=== PATIENT | male | born 1995 | race Caucasian/White ===

== ENCOUNTER 2022-08-14 18:22 | Emergency (ER) | payer BC, SELFPAY ==
[2022-08-14 18:29] VITALS: BP 135/88; PULSE 89; RESP 16; TEMP 36.6; O2SAT 99
[2022-08-14 18:31] VITALS: BP 135/88; PULSE 89; RESP 16; TEMP 36.6; O2SAT 99
[2022-08-14 19:00] LABS: Basophils Absolute Auto 0.02 K/mm3 (0.00-0.10); Basophils Percent Auto 0.3 % (0.0-1.0); Eosinophils Absolute Auto 0.04 K/mm3 (0.02-0.50); Eosinophils Percent Auto 0.6 % (1.0-6.0); Hematocrit 44.1 % (40.0-54.0); Hemoglobin 15.4 g/dL (14.0-18.0); Immature Granulocyte Absolute 0.02 K/mm3 (0.00-0.00); Immature Granulocyte Percent A 0.3 % (0.0-0.0); Lymphocytes Absolute Auto 2.58 K/mm3 (1.10-4.50); Lymphocytes Percent Auto 41.4 % (18.0-42.0); Mean Corpuscular HGB Conc 34.9 g/dL (32.0-36.0); Mean Corpuscular Volume 88.9 fL (78.0-102.0); Mean Platelet Volume 9.8 fl (8.7-11.0); Monocytes Absolute Auto 0.42 K/mm3 (0.10-0.90); Monocytes Percent Auto 6.7 % (2.0-11.0); Neutrophils Absolute Auto 3.2 K/mm3 (1.7-7.2); Neutrophils Percent Auto 50.7 % (50.0-70.0); Platelet Count Result 234 K/mm3 (150-420); Red Blood Count 4.96 M/mm3 (4.70-6.10); Red Cell Distribution Width 11.9 % (11.6-14.4); White Blood Count 6.2 K/mm3 (4.8-10.8)
[2022-08-14 19:01] VITALS: BP 127/103; PULSE 88; RESP 18; O2SAT 93
[2022-08-14] MEDS: ONDANSETRON INJ 4 MG/2 ML VIAL IV PUSH (19:13)
[2022-08-14 19:35] LABS: Alanine Aminotransferase 82 U/L (16-63); Albumin Level 4.3 g/dL (3.4-5.0); Alkaline Phosphatase 90 U/L (46-116); Anion Gap 5 mmol/L (8-16); Aspartate Amino Transferase 18 U/L (15-37); Bilirubin,Total 0.2 mg/dL (0.00-1.00); Blood Urea Nitrogen 10 mg/dL (7-18); Calcium 8.1 mg/dL (8.5-10.1); Carbon Dioxide 31 mmol/L (21-32); Chloride 107 mmol/L (98-108); Estimated CRCL calculation 110 ml/min; Estimated Glomerular Filt Rate > 60; Glucose 97 mg/dL (70-99); Magnesium 2.2 mg/dL (1.8-2.4); Osmolality Calculated 295 mOsm/kg (285-295); Potassium 4.1 mmol/L (3.5-5.1); Sodium 143 mmol/L (136-145); Total Protein 7.4 g/dL (6.4-8.2)
[2022-08-14 19:37] LABS: Ethanol 228 mg/dL (0-6)
--- NOTE | 2022-08-14 20:20 | ED.ALCOHOL ---
HPI - Alcohol General Chief Complaint: Alcohol Stated Complaint: Intoxicated Time Seen by Provider: 08/14/22 18:24 Source: patient Mode of arrival: ambulatory Limitations: no limitations History of Present Illness HPI narrative: this is 26-year-old gentleman that was found in the neighbor's yd passed out had been to [place] [place] and has had quite a bit to drink patient, found to be intoxicated and brought to the emergency department patient has been nauseated and had episode of vomiting currently no fever chills vitals are stable no abdominal pain. Patient's girlfriend states that patient only used alcohol no illicit drugs. complaint: alcohol intoxication Related Data Home Medications Medication Instructions Recorded Confirmed No Home Medications 08/14/22 08/14/22 Allergies Allergy/AdvReac Type Severity Reaction Status Date / Time No Known Allergies Allergy Verified 08/14/22 18:38 Review of Systems Review of Systems: All systems reviewed & are unremarkable except as noted in HPI and below PMFSH Past Medical History Medical History Patient denies medical problems Exam Const: General: no acute distress Nutritional Appearance: well nourished Orientation/consciousness: patient oriented x3 Limitations: no limitations HENMT: Head: normal to inspection Face/Nose/Sinus: Normal external nose present Face and sinus: normal facial exam Mouth: Yes Normal oral and palatal mucosa present Eyes: Conjunctivae: conjunctivae normal Pupils: Equal, round and reactive pupils present EOM: EOMs intact bilaterally Direct Ophthalmoscopy: no photophobia Neck: Neck: normal visual inspection, no lymphadenopathy and no meningeal signs Chest: Chest palpation & inspection: normal inspection of the chest Resp: Effort & Inspection: normal respiratory effort Auscultation: clear to auscultation bilaterally Cardio: Rate: regular rate Rhythm: regular rhythm GI: GI Palp: Yes Soft to palpation : General: Yes bladder normal to palpation Back/Spine/Pelvis: Back: no CVA tenderness Skin: General skin exam: normal color Rashes: no rashes Wounds: no wounds Neuro: General: patient oriented x3 and moves all extremities Cranial nerves: Yes Nystagmus not present Speech: normal speech Extrem: General: normal to inspection Psych: Mental Status: mental status grossly normal Affect: normal affect Course Course Emergency Course: patient received IV fluids and IV Zofran currently resting comfortably in no acute distress labs reviewed with family members Vital Signs Vital signs: Vital Signs Temperature 36.6 C 08/14/22 18:29 Pulse Rate 89 08/14/22 18:29 Respiratory Rate 16 08/14/22 18:29 Blood Pressure 135/88 08/14/22 18:29 Pulse Oximetry 99 08/14/22 18:29 Oxygen Delivery Room Air 08/14/22 18:29 Temperature 36.6 C 08/14/22 18:31 Pulse Rate 88 08/14/22 19:01 Respiratory Rate 18 08/14/22 19:01 Blood Pressure 127/103 H 08/14/22 19:01 Pulse Oximetry 93 08/14/22 19:01 Oxygen Delivery Room Air 08/14/22 18:31 MDM - Alcohol Lab Data 08/14/22 18:56 08/14/22 18:56 Labs: Lab Results 08/14/22 08/14/22 Range/Units 18:56 18:56 WBC 6.2 (4.8-10.8) K/mm3 RBC 4.96 (4.70-6.10) M/mm3 Hgb 15.4 (14.0-18.0) g/dL Hct 44.1 (40.0-54.0) % MCV 88.9 (78.0-102.0) fL MCH 31.0 (27.0-31.0) pg MCHC 34.9 (32.0-36.0) g/dL RDW 11.9 (11.6-14.4) % Plt Count 234 (150-420) K/mm3 MPV 9.8 (8.7-11.0) fl Immature Gran % (Auto) 0.3 H (0.0-0.0) % Neut % (Auto) 50.7 (50.0-70.0) % Lymph % (Auto) 41.4 (18.0-42.0) % [place] % (Auto) 6.7 (2.0-11.0) % Eos % (Auto) 0.6 L (1.0-6.0) % Baso % (Auto) 0.3 (0.0-1.0) % Lymph # (Auto) 2.58 (1.10-4.50) K/mm3 [place] # (Auto) 0.42 (0.10-0.90) K/mm3 Eos # (Auto) 0.04 (0.02-0.50) K/mm3 Baso # (Auto) 0.02 (0.00-0.10)
[2022-08-14 20:56] VITALS: PULSE 90; RESP 14; O2SAT 96
[2022-08-14 21:00] VITALS: PULSE 79; RESP 18; O2SAT 99
[2022-08-14 22:00] VITALS: BP 134/71; PULSE 77; RESP 18; O2SAT 97
== END 2022-08-14 22:39 | disposition home or self-care (01) ==
PROVIDERS: Emergency Provider Emergency Medicine
DX: F10.920 Alcohol use, unspecified with intoxication, uncomplicated (principal)
CPT/HCPCS: 36415; 80053; 80307; 83735; 85025; 96374; 99284; J2405